=== PATIENT | male | born 1990 | race Caucasian/White ===

== ENCOUNTER → 2021-10-11 | Outpatient (CLI) | payer SELFPAY ==
[~2021-10-11] MED LIST: CRESTOR20 M1 PO; PRILOSEC20 M1 PO
[2021-10-11 11:28] LABS: CHOLESTEROL 155 mg/dL (<200); LDL CHOLESTEROL 59 mg/dL (9-159); TRIGLYCERIDES 342 mg/dl (<150)
== END | disposition home or self-care (01) ==
LOC: LAB 01:04 → CARD 01:04
PROVIDERS: Family Medicine; ATTEND Internal Medicine Cardiovascular Disease
DX: Z02.1 Encounter for pre-employment examination (principal); R79.89 Other specified abnormal findings of blood chemistry; E78.5 Hyperlipidemia, unspecified